=== PATIENT | female | born 1985 | race Caucasian/White ===

== ENCOUNTER 2022-06-01 15:32 | Emergency (ER) | payer OTHER ==
[~2022-06-01] VITALS: Ht 160 cm; Wt 84.1 kg
[2022-06-01] MEDS ORDERED: ACETAMINOPHEN 325 MG TABLET PO ONE (17:45)
[2022-06-01] MEDS ORDERED: IBUPROFEN 400 MG TABLET PO ONE (17:45)
[2022-06-01 22:27] VITALS: BP 124/67
== END 2022-06-01 22:50 | disposition home or self-care (01) ==
LOC: EMS 16:11
DX: S09.8XXA Other specified injuries of head, initial encounter (principal); Y04.8XXA Assault by other bodily force, initial encounter; Y93.9 Activity, unspecified; Y92.148 Other place in prison as the place of occurrence of the external cause; Y99.8 Other external cause status
CPT/HCPCS: 70450; 70486; 99284